=== PATIENT | female | born 1965 | race Caucasian/White ===

== ENCOUNTER 2016-05-27 18:40 | Inpatient (IN) | payer MEDICAID ==
[~2016-05-27] VITALS: Ht 157.5 cm; Wt 60.7 kg
[2016-05-27] MEDS ORDERED: MULTIVITS ADULT INJ 10 ML, THIAMINE 100 MG, FOLIC ACID INJ 1 MG in SODIUM CHLORIDE 0.9%... IV ONE ×3 (22:50)
[2016-05-27] MEDS ORDERED: SODIUM CHLORIDE 0.9% 1,000 ML ONE (23:40)
[2016-05-27] MEDS ORDERED: DIAZEPAM 10 MG/2 ML SYR ONE (23:40)
[2016-05-28] VITALS (22 sets, daily range): BP systolic 113–184; RESP 13–25; TEMP 98.2–99.8; Ht 157.5 cm; Wt 60.7 kg
[2016-05-28] MEDS ORDERED: NICOTINE 21 MG/24 HR TRANSDERM ONE (00:16)
[2016-05-28] MEDS ORDERED: DIAZEPAM 10 MG/2 ML SYR ONE ×3 (00:40→03:31)
[2016-05-28] MEDS ORDERED: LORAZEPAM 2 MG/ML VIAL ONE ×3 (02:18→04:48)
[2016-05-28] MEDS ORDERED: SODIUM CHLORIDE 0.9% 1,000 ML ONE (04:21)
[2016-05-28] MEDS ORDERED: ALU/MAG/SIM 30 ML UDC PO PRN ×2 (05:05)
[2016-05-28] MEDS ORDERED: BISACODYL EC 5 MG TAB PO PRN (05:05)
[2016-05-28] MEDS ORDERED: SALINE FLUSH 10 ML FLUSH PRN (05:05)
[2016-05-28] MEDS ORDERED: MAG HYDROX 30 ML UDC PO PRN (05:05)
[2016-05-28] MEDS ORDERED: BISACODYL 10 MG SUPP RECTAL PRN (05:05)
[2016-05-28] MEDS ORDERED: PROMETHAZINE 25 MG TAB PO PRN (05:05)
[2016-05-28] MEDS ORDERED: ONDANSETRON 4 MG VIAL IV PRN (05:05)
[2016-05-28] MEDS ORDERED: PROMETHAZINE 25 MG SUPP RECTAL PRN (05:05)
[2016-05-28] MEDS: SODIUM CHLORIDE 0.9% FLUSH BAG 500 ML IV SCH (06:00)
[2016-05-28] MEDS ORDERED: *PINK BRACELET XX ONE (06:15)
[2016-05-28] MEDS: LORAZEPAM 0.5 MG TAB PO PRN (06:52)
[2016-05-28] MEDS: SALINE FLUSH 10 ML FLUSH SCH ×2 (07:45→21:18)
[2016-05-28] MEDS: FOLIC ACID 1 MG TAB PO SCH (07:45)
[2016-05-28] MEDS: *HOME MEDS KEPT IN PHARMACY XX SCH ×2 (07:45→20:00)
[2016-05-28] MEDS: SODIUM CHLORIDE 0.9% 1,000 ML IV SCH ×2 (07:46→21:17)
[2016-05-28] MEDS ORDERED: [UNRECOGNIZED DRUG - REMARK] XX SCH (08:01)
[2016-05-28] MEDS ORDERED: ATENOLOL 25 MG TAB PO SCH (09:00)
[2016-05-28] MEDS: MULTIVITS/MINERALS (THERAGRAN M) TAB PO SCH (09:11)
[2016-05-28] MEDS: LORAZEPAM 2 MG/ML VIAL IV PRN ×4 (09:11→21:32)
[2016-05-28] MEDS: THIAMINE 100 MG TAB PO SCH (09:11)
[2016-05-28] MEDS: BACLOFEN 10 MG TAB PO SCH ×3 (09:47→21:18)
[2016-05-28] MEDS: HALOPERIDOL 1 MG TAB PO SCH ×3 (09:47→21:00)
[2016-05-28] MEDS ORDERED: ATENOLOL 25 MG TAB PO ONE (10:05)
[2016-05-28] MEDS ORDERED: MAGNESIUM SULF 1 GM/100 ML 100 ML IV ONE (10:15)
[2016-05-28] MEDS: ATENOLOL 25 MG TAB PO SCH (21:18)
[2016-05-28] MEDS: SILVER SULF 1% CR 50 GM TOPICAL SCH (21:21)
[2016-05-29] VITALS (13 sets, daily range): BP systolic 111–151; RESP 14–19; TEMP 98–99.1
[2016-05-29] MEDS: LORAZEPAM 2 MG/ML VIAL IV PRN ×2 (02:20→08:19)
[2016-05-29] MEDS: SODIUM CHLORIDE 0.9% FLUSH BAG 500 ML IV SCH (06:00)
[2016-05-29] MEDS: SODIUM CHLORIDE 0.9% 1,000 ML IV SCH (06:31)
[2016-05-29] MEDS: *HOME MEDS KEPT IN PHARMACY XX SCH (08:00)
[2016-05-29] MEDS: BACLOFEN 10 MG TAB PO SCH (08:18)
[2016-05-29] MEDS: THIAMINE 100 MG TAB PO SCH (08:18)
[2016-05-29] MEDS: FOLIC ACID 1 MG TAB PO SCH (08:18)
[2016-05-29] MEDS: MULTIVITS/MINERALS (THERAGRAN M) TAB PO SCH (08:18)
[2016-05-29] MEDS: HALOPERIDOL 1 MG TAB PO SCH (08:18)
[2016-05-29] MEDS: SALINE FLUSH 10 ML FLUSH SCH (08:18)
[2016-05-29] MEDS: ATENOLOL 25 MG TAB PO SCH (08:18)
[2016-05-29] MEDS: SILVER SULF 1% CR 50 GM TOPICAL SCH (10:00)
[2016-05-29] MEDS: LORAZEPAM 0.5 MG TAB PO PRN (12:52)
== END 2016-05-29 14:29 | disposition left against medical advice (07) | DRG 894 ==
LOC: ENRESERVDT → ENRESERVTM → ER 18:40 → EMR 05-28 04:11 → ICU 05-28 06:00 → 4NT 05-29 11:05
PROVIDERS: ADMIT Family Medicine; ATTEND Family Medicine
DX: F10.231 Alcohol dependence with withdrawal delirium (principal); E03.9 Hypothyroidism, unspecified; R00.0 Tachycardia, unspecified; T51.0X2A Toxic effect of ethanol, intentional self-harm, initial encounter; Y90.8 Blood alcohol level of 240 mg/100 ml or more; F17.210 Nicotine dependence, cigarettes, uncomplicated; T23.001D Burn of unspecified degree of right hand, unspecified site, subsequent encounter
CPT/HCPCS: 36415; 80053; 80307; 80320; 80329; 81003; 83735; 84439; 84443; 85025; 85610; 96361; 96365; 96366; 96375; 96376; 99223; 99291